=== PATIENT | male | born 1985 | race Two or more races ===

== ENCOUNTER 2024-12-25 04:20 | Emergency (ER) | payer MEDICAID, SELFPAY ==
[2024-12-25 04:25] VITALS: BP 125/89; PULSE 119; RESP 19; TEMP 36.8; O2SAT 97; BMI 26.6
--- NOTE | 2024-12-25 04:35 | PD.EDURI ---
Upper Respiratory Inf. RME/HPI General Chief Complaint: Flu Like Symptoms Stated Complaint: FLU SYMPTOMS Time Seen by Provider: 12/25/24 04:29 Arrival date/time: 12/25/24 04:20 39 year old male present to emergency room with c/o of flu like sx for 2 days, patient also would like STI testing. He sexually active with multi partners SEVERITY: Symptoms are described as being severe with limitations on activities of daily living CONTEXT: The patient is unable to identify any inciting events. DURATION/TIMING: The symptoms started approximately 2 days ASSOCIATED SYMPTOMS: The patient is unable to identify any other associated symptoms. MODIFYING FACTORS: The patient is unable to identify any alleviating or aggravating symptoms. PERTINENT ROS: no fevers, no cough, no chest pain/shortness of breath no nausea,vomiting, diarrhea, no dizziness/headache no rash no loc/syncope episode no abd/back pain no dysuria, urgency, frequency, scrotum pain REVIEW OF SYSTEMS: See History of Present Illness - with the exception of those mentioned in the history of present illness, all other systems reviewed and reported as negative GENERAL: In general the patient is awake, interactive, in an emergency department gurney. HEAD/EYES/EARS/NOSE/THROAT: normo-cephalic, atraumatic, mucus membranes are moist, anicteric, palpebral conjunctiva is pink, trachea is midline. CARDIOVASCULAR: regular rate and regular rhythm, no murmurs, heart sounds are not distant, strong pulses in all four extremities that are equal and symmetric bilateral upper and lower extremities, normal capillary refill. CHEST/PULMONARY: normal chest rise and fall, good air movement, clear to auscultation bilaterally, normal inspiratory to expiratory ratios without evidence of respiratory distress. NECK: No midline/Paraspinal tenderness, no step off ROM/Strenght intact No Kernig and bruzinski sign. No trauma ABDOMEN: soft, not tender, no masses appreciated BACK: normal range of motion without pain. NEUROLOGICAL: cranio-facial features are symmetric, moves all four extremities equally without obvious limitations or weakness. EXTREMITY: no tenderness to palpation over the long bones or large joints of the bilateral upper and lower extremities, no joint swelling, no joint erythema, no signs of trauma, no unilateral leg swelling and no peripheral edema. SKIN: warm, dry, well-perfused, no jaundice, no rash, no telangiectasias or petechia. PSYCH: calm, cooperative, no evidence of psychosis or agitation Related Data Previous Rx's ?Medication ?Instructions ?Recorded Hydrocodone/Acetaminophen * (NORCO 1 tab PO Q6H PRN pain #20 tabs 05/21/ 5/325 *) Hydrocodone/Acetaminophen * (NORCO 1 tab PO Q4H PRN PAIN #14 tabs 02/16/16 5/325 *) Allergies Allergy/AdvReac Type Severity Reaction Status Date / Time NKA* Allergy Uncoded 02/15/16 16:36 Course Course Course Narrative: discussed safe sex practice, avoid sexual relation until results finalized, if positive contact sexual partner to get tx or tested. Quality Measures none Orders Category Date Time Status Bedside COVID-19 Antigen Test NOW Care 12/25/24 04:32 Active Bedside Influenza A&B Antigen Test NOW Care 12/25/24 04:32 Active Chlamydia/GC/TV - PCR Stat Lab 12/25/24 Ordered HIV (1&2) Antibody Rapid Stat Lab 12/25/24 04:32 Ordered Syphilis Stat Lab 12/25/24 Ordered Throat Culture Stat Lab 12/25/24 04:33 Ordered Vital Signs Vital signs: Vital Signs Temperature 98.3 F 12/25/24 04:25 Pulse Rate 119 H 12/25/24 04:25 Respiratory Rate 19 12/25/24 04:25 Blood Pressure 125/89 H 12/25/24 04:25 Pulse Oximetry (%) 97 12/25/24 04:25 Oxygen Delivery Method Room Air 12/25/24 04:25 Upper Respiratory Infection Patient data External records reviewed:: [facility] previous records Clinical information provided by:: patient Social determinants that could affect healthcare access:: none Patient has the following chronic illnesses:: n/a How is presenting disease/condition affected by chronic disease/condition?: no chronic disease Evaluation data The following diagnostics were reviewed and interpreted by me:: lab results Lab and/or radiology exams considered but not ordered:: n.a Interpretation Summary: covid/flu strep: pending STI pending Medications / Prescriptions Medications or Prescriptions considered but not ordered:: n/a Medication administrations:: n/a Consultations Consultation(s) initiated? (list below): No Diagnosis Upper Respiratory Differential Diagnosis: upper respiratory infection, viral infection, influenza, pharyngitis and other (STI ) Most likely diagnosis given after review of the tests above:: URI Admission Indicated Admission indicated?: not indicated Admission Request Was there a request for admission?: No Disposition Plan Disposition Plan: Discharge Discharge Attestation Discharge Attestation: The patient and all family members were given an opportunity to ask questions and understood the discharge instructions. Discharge instructions specifically effects, indications for sooner follow up or return to the emergency department, and the expected course of current diagnosis. Patient condition: Stable Discharge Plan Plan Patient Disposition: HOME (Self Care) Health Concerns: Follow up with PCP STD labs are pending may take up a week Return to ED if symptoms worsen Prescriptions/Referrals Prescriptions/Med Rec: No Action Hydrocodone/Acetaminophen * (NORCO 5/325 *) 1 TAB tablet 1 tab PO Q6H PRN (Reason: pain) Qty: 20 0RF Hydrocodone/Acetaminophen * (NORCO 5/325 *) 1 TAB tablet 1 tab PO Q4H PRN (Reason: PAIN) Qty: 14 0RF Rx Instructions: FOR PAIN Problem List Clinical Impression: Upper respiratory infection, Screen for STD (sexually transmitted disease) Patient/Caregiver Discharge Instructions Education Materials: ED URI, Viral, No Abx (Adult) Print Language: Indonesian Stand Alone Forms: [facility]ny Award Info., Patient Portal Info Letter
[2024-12-25 06:46] LABS: Syphilis Nonreactive (Nonreactive)
[2024-12-25 10:54] LABS: HIV (1&2) Antibody Rapid Non-Reactive
[2024-12-25 16:22] LABS: Chlamydia trachomatis PCR Negative (Not Detect); Neisseria Gonorrhoeae DNA PCR Negative (Not Detect); Trichomonas Negative (Negative)
== END 2024-12-25 05:21 | disposition home or self-care (01) ==
PROVIDERS: Physician Assistant; Emergency Provider Emergency Medicine
DX: J06.9 Acute upper respiratory infection, unspecified (principal); Z11.3 Encounter for screening for infections with a predominantly sexual mode of transmission
CPT/HCPCS: 36415; 86703; 86780; 87070; 87400; 87491; 87591; 87661; 87811; 99283